=== PATIENT | male | born 1980 | race Caucasian/White ===

== ENCOUNTER 2018-09-29 23:41 | Emergency (ER) | payer MEDICAID, MEDICARE ==
[~2018-09-29] VITALS: Ht 170.2 cm; Wt 60.0 kg
[2018-09-30 01:04] VITALS: BP 131/74
== END 2018-09-30 01:05 | disposition home or self-care (01) ==
LOC: ED 09-30 00:44
DX: R07.89 Other chest pain (principal); F17.200 Nicotine dependence, unspecified, uncomplicated
CPT/HCPCS: 71046; 93005; 99283

== ENCOUNTER 2020-05-01 22:31 | Emergency (ER) | payer SELFPAY ==
[2020-05-01 22:32] VITALS: BP 122/89
--- NOTE | 2020-05-01 23:06 | NUR ---
PT AMBULATED TO RESTROOM, PT TOOK APPROX 15 MINUTES IN RESTROOM AND CAME BACK EXTREMELY DISHEVELED. PT AFFECT WAS FLAT, BUT PARANOID. MONITORS IN PLACE, CALL LIGHT IN REACH. WILL CONTINUE TO MONITOR.
[2020-05-01 23:16] LABS: BASOPHILS # (AUTO) 0.07 x10^3/uL (0-0.1); BASOPHILS % (AUTO) 0 % (0-1); EOSINOPHILS # (AUTO) 0.16 x10^3/uL (0-0.4); EOSINOPHILS % (AUTO) 1 % (1-7); LYMPHOCYTES % (AUTO) 16 % (22-44); MD NO; MEAN CORPUSCULAR HEMOGLOBIN 33.4 pg (27.5-34.5); MEAN CORPUSCULAR HGB CONC 33.4 g/dL (33.2-36.2); MEAN CORPUSCULAR VOLUME 100.2 fL (81-97); MEAN PLATELET VOLUME 9.4 fL (7.4-10.4); MONOCYTES # (AUTO) 1.18 x10^3/uL (0.2-0.8); MONOCYTES % (AUTO) 7 % (2-9); NEUTROPHILS # (AUTO) 13.54 x10^3/uL (1.8-6.8); NEUTROPHILS % (AUTO) 76 % (42-75); PLATELET COUNT 297 x10^3/uL (130-400); RED BLOOD COUNT 4.86 x10^6/uL (4.38-5.82); RED CELL DISTRIBUTION WIDTH 13.3 % (9.4-14.8)
[2020-05-01 23:23] LABS: ALBUMIN 4.4 g/dL (3.4-5.0); ANION GAP 6 mmol/L (5-15); CALCIUM 8.7 mg/dL (8.5-10.1); CHLORIDE 111 mmol/L (98-107); CREATININE 1.08 mg/dL (0.7-1.3); SALICYLATE LEVEL 6.2 mg/dL (2.8-20.0)
[2020-05-01 23:26] LABS: AMPHETAMINE SCREEN, URINE Negative (Negative); BARBITURATE SCREEN, URINE Negative (Negative); BENZODIAZEPINE SCREEN, URINE Negative (Negative); CANNABINOID SCREEN, URINE Positive (Negative); COCAINE SCREEN, URINE Negative (Negative); METHADONE SCREEN, URINE Negative (Negative); OPIATE SCREEN, URINE Negative (Negative)
--- NOTE | 2020-05-01 23:39 | NUR ---
ATTEMPTED TO CALL MOTHER PER PT REQUEST, NO ANSWER
--- NOTE | 2020-05-02 00:12 | NUR ---
PT PROVIDED WITH LIST OF HOMELESS SHELTERS, PER REQUEST. PT AMBULATED TO DC DESK WITH STEADY GAIT
== END 2020-05-02 00:15 | disposition home or self-care (01) ==
LOC: ED 05-02 00:09
DX: F10.120 Alcohol abuse with intoxication, uncomplicated (principal); F17.200 Nicotine dependence, unspecified, uncomplicated; Z72.9 Problem related to lifestyle, unspecified; Z90.81 Acquired absence of spleen; Y90.9 Presence of alcohol in blood, level not specified
CPT/HCPCS: 36415; 80048; 80307; 82040; 85025; 87806; 99283; G0475